=== PATIENT | female | born 1935 | race Caucasian/White ===

== ENCOUNTER 2018-10-31 13:20 | Outpatient (CLI) | payer OTHER ==
[~2018-10-31 13:20] MED LIST: ADULT LOW DOSE81 M1 PO; DIOVAN160 M1 PO; GLIPIZIDE5 MG PO; GLUMETZA1000 MG PO; HYALGAN10 MG/1 ML IU; IMDUR30 MG PO; NORVASC5 MG PO
== END 2018-10-31 13:22 | disposition home or self-care (01) ==
LOC: SONOGRAMA 13:20
DX: S86.112A Strain of other muscle(s) and tendon(s) of posterior muscle group at lower leg level, left leg, initial encounter (principal)